=== PATIENT | female | born 1950 | race African-American/Black ===

== ENCOUNTER 2016-08-04 07:58 | Emergency (ER) | payer MEDICARE, MEDICAID ==
[~2016-08-04] VITALS: Ht 170.2 cm; Wt 60.0 kg
[~2016-08-04 07:58] MED LIST: ARAV20 PO; CALC-21 PO; GLYB2.5T4 PO; IBUP-1509 PO; UNK MEDS
[2016-08-04 08:47] VITALS: BP 132/78
== END 2016-08-04 11:31 | disposition home or self-care (01) ==
LOC: ER 08:42
DX: S82.831A Other fracture of upper and lower end of right fibula, initial encounter for closed fracture (principal); M19.90 Unspecified osteoarthritis, unspecified site; E11.8 Type 2 diabetes mellitus with unspecified complications; Z79.899 Other long term (current) drug therapy; F17.200 Nicotine dependence, unspecified, uncomplicated; W01.0XXA Fall on same level from slipping, tripping and stumbling without subsequent striking against object, initial encounter; Y93.89 Activity, other specified; Y99.9 Unspecified external cause status; Y92.89 Other specified places as the place of occurrence of the external cause
CPT/HCPCS: 29515; 73562; 73610; 99284

== ENCOUNTER 2017-01-13 06:31 | Emergency (ER) | payer MEDICARE, MEDICAID ==
[~2017-01-13] VITALS: Ht 170.2 cm; Wt 59.0 kg
[~2017-01-13 06:31] MED LIST changes: -IBUP-1509 PO; +IBUP-2028 PO
[2017-01-13] MEDS ORDERED: VISCOUS LIDOCAINE 2% 15 ML UDC PO STA (08:50)
[2017-01-13] MEDS ORDERED: FAMOTIDINE 20MG/2ML VIAL IV STA (08:50)
[2017-01-13] MEDS ORDERED: MAGNESIUM/ALUMINUM HYDROXIDE/SIMETHICONE 30ML UDC PO STA (08:50)
[2017-01-13] MEDS ORDERED: ONDANSETRON HCL 4MG/2ML VIAL IV STA (08:50)
[2017-01-13 09:08] LABS: BASOPHILS % 0.6 % (0.0-2.0); EOSINOPHILS % 0.8 % (0.0-5.0); HEMATOCRIT. 43.6 % (36.0-48.0); HEMOGLOBIN. 13.9 g/dL (12.0-16.0); LYMPHOCYTES % 20.3 % (20.0-50.0); MEAN CORPUSCULAR HEMOGLOBIN 23.5 pg (28.0-32.0); MEAN CORPUSCULAR VOLUME 73.4 fL (81.0-99.0); MEAN PLATELET VOLUME 7.5 fl (7.4-10.4); MONOCYTES % 10.5 % (2.0-8.0); NEUTROPHILS % 67.8 % (40.0-76.0); PLATELET 271 x1000/uL (130-400); RED BLOOD CELL COUNT 5.93 mill/uL (4.2-5.4)
[2017-01-13 09:15] LABS: INR 1.1; PROTHROMBIN TIME 11.1 sec (9.4-11.6)
[2017-01-13 09:24] LABS: CARBON DIOXIDE 29 mEq/L (21-32); CHLORIDE 98 mEq/L (98-107); TROPONIN I < 0.02 ng/mL (0.00-0.04)
[2017-01-13 12:27] LABS: CLARITY URINE CLOUDY (CLEAR); COLOR URINE DARK YELLOW (YELLOW); GLUCOSE URINE 3+ (NEGATIVE); KETONES URINE NEGATIVE (NEGATIVE); LEUKOCYTE ESTERASE URINE NEGATIVE (NEGATIVE); NITRITE URINE NEGATIVE (NEGATIVE); OCCULT BLOOD URINE NEGATIVE (NEGATIVE); PROTEIN URINE 2+ (NEGATIVE); SPECIFIC GRAVITY URINE 1.033 (1.005-1.030)
[2017-01-13] MEDS ORDERED: POTASSIUM CHLORIDE 20MEQ TABLET SR PO ONE (12:30)
[2017-01-13 14:04] VITALS: BP 131/72
== END 2017-01-13 14:14 | disposition home or self-care (01) ==
LOC: ER 09:29
DX: E87.6 Hypokalemia (principal); R07.9 Chest pain, unspecified; R11.10 Vomiting, unspecified; E11.9 Type 2 diabetes mellitus without complications
CPT/HCPCS: 36415; 71010; 80053; 81001; 83690; 84484; 85025; 85610; 93005; 96374; 96375; 99285; J2405; J3490